=== PATIENT | female | born 1965 | race Caucasian/White ===

== ENCOUNTER 2017-07-23 17:07 | Emergency (ER) | payer OTHER ==
[2017-07-23 17:23] VITALS: BP 139/96
--- NOTE | 2017-07-23 18:49 | ED Physician Documentation ---
PD HPI SKIN - Stated complaint Stated Complaint: HIVES - Chief complaint Chief Complaint: Wound - History obtained from History obtained from: Patient - History of Present Illness Timing - onset: Yesterday Timing - duration: Days (2) Timing - details: Gradual onset Location: [place] Quality / character: Itchy, Burning Improved by: No: Benadryl Associated symptoms: Myalgias. No: Fever, Joint pain, Facial swelling, Dyspnea , Abd pain, N/V/D Contributing factors: No: Exposed to food, Recent illness Similar symptoms before: No diagnosis Recently seen: Clinic (last week and told to continue Benadryl and it was due to "nerves".) Review of Systems Constitutional: denies: Fever Nose: denies: Rhinorrhea / runny nose, Congestion Throat: denies: Sore throat Respiratory: denies: Dyspnea, Cough GI: denies: Abdominal Pain, Nausea, Vomiting, Diarrhea Skin: reports: Rash Neurologic: reports: Generalized weakness. denies: Focal weakness, Numbness PD PAST MEDICAL HISTORY - Past Medical History Past Medical History: Yes Cardiovascular: High cholesterol Respiratory: None Neuro: None Endocrine/Autoimmune: Type 2 diabetes GI: Other Other Past Medical History: Barretts ds, sarcoidosis. - Present Medications Home Medications: Ambulatory Orders Medication Instructions Recorded Confirmed Acetaminophen/Cod 300/30 [Tylenol 1 tab PO DAILY 07/23/17 07/23/17 #3] Aspirin Chewable [St Ok 81 mg PO DAILY 07/23/17 07/23/17 Aspirin] Cetirizine [ZyrTEC] 10 mg PO DAILY #20 tablet 07/23/17 Colloidal Oatmeal [Gold Cheney 1 applic TP BID #226 cream..g. 07/23/17 Ultimate Eczema Rlf] Dexamethasone [Decadron] 4 mg PO DAILY #5 tablet 07/23/17 Duloxetine HCl 60 mg PO DAILY 07/23/17 07/23/17 Insulin Glargine [Lantus Solostar] 40 unit PO DAILY 07/23/17 07/23/17 Insulin Lispro [Humalog] 100 unit PO DAILY 07/23/17 07/23/17 Omeprazole 40 mg PO DAILY 07/23/17 07/23/17 Polyvinyl Alcohol/Povidone 3 drops EACHEYE DAILY 07/23/17 07/23/17 [Artificial Tears Drops] Rosuvastatin Calcium 10 mg PO DAILY 07/23/17 07/23/17 Sennosides [Senna Laxative] 8.6 mg PO DAILY 07/23/17 07/23/17 amLODIPine [Norvasc] 5 mg PO DAILY 07/23/17 07/23/17 diphenhydrAMINE [Benadryl] 2 tab PO DAILY 07/23/17 07/23/17 hydrOXYzine PAMOATE [Vistaril] 25 mg PO Q6H PRN #30 capsule 07/23/17 - Allergies Allergies/Adverse Reactions: Allergies Allergy/AdvReac Type Severity Reaction Status Date / Time acetaminophen [From Vicodin] Allergy Unknown Verified 07/23/17 17:26 atorvastatin Allergy Unknown Verified 07/23/17 17:26 exenatide [From Bydureon] Allergy Unknown Verified 07/23/17 17:26 gabapentin Allergy Unknown Verified 07/23/17 17:26 hydrocodone [From Vicodin] Allergy Unknown Verified 07/23/17 17:26 hydroxychloroquine Allergy Anaphylaxis Verified 07/23/17 17:26 - Social History Does the pt smoke?: No Smoking Status: Never smoker PD ED PE NORMAL - Vitals Vital signs reviewed: Yes - General General: Alert and oriented X 3, Well developed/nourished, Other (anxious) - HEENT HEENT: Pharynx benign - Neck Neck: Supple, no meningeal sign, No adenopathy - Cardiac Cardiac: RRR, No murmur - Respiratory Respiratory: Clear bilaterally - Abdomen Abdomen: Soft, Non tender - Derm Derm: Normal color, Warm and dry, Other (blotches of raised, flat, nonvesicular rash.) - Extremities Extremities: No tenderness to palpate, Normal ROM s pain - Neuro Neuro: Alert and oriented X 3, No motor deficit, Normal speech Results - Vitals Vitals: Oxygen O2 Source Room air PD MEDICAL DECISION MAKING - ED course Complexity details: considered differential, d/w patient Departure - Departure Disposition: 01 Home, Self Care Clinical Impression: Hives Condition: Stable Record reviewed to determine appropriate education?: Yes Instructions: ED Urticaria Prescriptions: Cetirizine [ZyrTEC] 10 mg PO DAILY #20 tablet Colloidal Oatmeal [Gold Cheney Ultimate Eczema Rlf] 1 applic TP BID #226 cream..g. Dexamethasone [Decadron] 4 mg PO DAILY #5 tablet hydrOXYzine PAMOATE [Vistaril] 25 mg PO Q6H PRN #30 capsule PRN Reason: Itching Comments: Use Benadryl or Vistaril short acting antihistamines to help with the itching. We will also add dexamethasone steroid daily for 5 more days to try to reduce the reaction. Also use long-acting antihistamine cetirizine daily for couple of weeks. He can use topical treatment such as oatmeal colloid which can come as a cream or his [id number] as oatmeal bath (Aveeno). Follow-up with your primary care Barbie Lorenzana if not improved over the next several days. Discharge Date/Time: 07/23/17 19:29
[2017-07-23] MEDS ORDERED: hydrOXYzine PAMOATE 25 MG CAPSULE PO STA (19:08)
[2017-07-23] MEDS ORDERED: DEXAMETHASONE 10 MG/ML VIAL PO STA (19:08)
[2017-07-23] MEDS ORDERED: CETIRIZINE 10 MG TABLET PO STA (19:08)
== END 2017-07-23 19:29 | disposition home or self-care (01) ==
LOC: ED 17:07
DX: L50.9 Urticaria, unspecified (principal); E11.9 Type 2 diabetes mellitus without complications; Z79.4 Long term (current) use of insulin; Z79.82 Long term (current) use of aspirin
CPT/HCPCS: 99283; A9270

== ENCOUNTER 2018-05-26 12:07 | Outpatient (CLI) | payer OTHER | END 2018-05-26 12:08 | disposition EMS.NT | LOC: EMS 12:07 | PROVIDERS: ATTEND Surgery | DX: R68.89 Other general symptoms and signs (principal) ==

== ENCOUNTER 2018-06-24 13:23 | Emergency (ER) | payer OTHER ==
[2018-06-24 13:46] VITALS: BP 155/96
--- NOTE | 2018-06-24 13:55 | ED Physician Documentation ---
History of Present Illness - Stated complaint Stated Complaint: WOUND ON TOE - Chief complaint Chief Complaint: Wound - History obtained from History obtained from: Patient - History of Present Illness Timing: Yesterday Pain level max: 0 Pain level now: 0 Improved by: nothing Worsened by: nothing - Additonal information Additional information: 53-year-old female presents to the emergency department with a right fourth toe redness and swelling. There is a wound to the bottom of the toe. She is diabetic and has neuropathy. States that she checked her feet 2 days ago and this was not present. She did have a wound on the same foot that took 2 years to heal Saw her doctor yesterday and has been referred to wound care Review of Systems Constitutional: denies: Fever, Chills GI: denies: Vomiting Skin: denies: Rash Musculoskeletal: denies: Neck pain, Back pain PD PAST MEDICAL HISTORY - Past Medical History Cardiovascular: High cholesterol Respiratory: None Neuro: None Endocrine/Autoimmune: Type 2 diabetes GI: Other - Present Medications Home Medications: Ambulatory Orders Medication Instructions Recorded Confirmed Acetaminophen/Cod 300/30 [Tylenol 1 tab PO DAILY 07/23/17 07/23/17 #3] Aspirin Chewable [St Ok 81 mg PO DAILY 07/23/17 07/23/17 Aspirin] Cetirizine [ZyrTEC] 10 mg PO DAILY #20 tablet 07/23/17 Colloidal Oatmeal [Gold Cheney 1 applic TP BID #226 cream..g. 07/23/17 Ultimate Eczema Rlf] Dexamethasone [Decadron] 4 mg PO DAILY #5 tablet 07/23/17 Duloxetine HCl 60 mg PO DAILY 07/23/17 07/23/17 Insulin Glargine [Lantus Solostar] 40 unit PO DAILY 07/23/17 07/23/17 Insulin Lispro [Humalog] 100 unit PO DAILY 07/23/17 07/23/17 Omeprazole 40 mg PO DAILY 07/23/17 07/23/17 Polyvinyl Alcohol/Povidone 3 drops EACHEYE DAILY 07/23/17 07/23/17 [Artificial Tears Drops] Rosuvastatin Calcium 10 mg PO DAILY 07/23/17 07/23/17 Sennosides [Senna Laxative] 8.6 mg PO DAILY 07/23/17 07/23/17 amLODIPine [Norvasc] 5 mg PO DAILY 07/23/17 07/23/17 diphenhydrAMINE [Benadryl] 2 tab PO DAILY 07/23/17 07/23/17 hydrOXYzine PAMOATE [Vistaril] 25 mg PO Q6H PRN #30 capsule 07/23/17 Amox/Clav 875/125 [Augmentin] 1 each PO Q12H #14 tablet 06/24/18 Sulfamethox/Trimeth 800/160 1 each PO BID #14 tablet 06/24/18 [Bactrim Ds 800/160] - Allergies Allergies/Adverse Reactions: Allergies Allergy/AdvReac Type Severity Reaction Status Date / Time acetaminophen [From Vicodin] Allergy Unknown Verified 07/23/17 17:26 atorvastatin Allergy Unknown Verified 07/23/17 17:26 exenatide [From Bydureon] Allergy Unknown Verified 07/23/17 17:26 gabapentin Allergy Unknown Verified 07/23/17 17:26 hydrocodone [From Vicodin] Allergy Unknown Verified 07/23/17 17:26 hydroxychloroquine Allergy Anaphylaxis Verified 07/23/17 17:26 - Social History Does the pt smoke?: No Smoking Status: Never smoker PD ED PE NORMAL - Vitals Vital signs reviewed: Yes - General General: Alert and oriented X 3, No acute distress - HEENT HEENT: Moist mucous membranes - Neck Neck: Supple, no meningeal sign - Cardiac Cardiac: RRR - Respiratory Respiratory: No respiratory distress, Clear bilaterally - Derm Derm: Warm and dry - Extremities Extremities: Other (Wound to the medial plantar aspect of the right fourth toe. Cellulitis on the dorsum of the toe extending one third of the way proximally up the foot. No abscess.) - Neuro Neuro: Alert and oriented X 3 Results - Vitals Vitals: Vital Signs - 24 hr 06/24/18 13:30 Temperature 36.4 C L Heart Rate 88 Respiratory 17 Rate Blood Pressure 155/96 H O2 Saturation 98 Oxygen O2 Source Room air PD MEDICAL DECISION MAKING - ED course Complexity details: reviewed results, re-evaluated patient, considered differential, d/w patient ED course: Wound care consulted and dressed the wound. We will have her follow-up with wound care for further care. Will place on antibiotics for home and follow-up with her doctor and wound care. Patient counseled regarding signs and symptoms for which I believe and urgent re-evaluation would be necessary. Patient with good understanding of and agreement to plan and is comfortable going home at this time This document was made in part using voice recognition software. While efforts are made to proofread this document, sound alike and grammatical errors may occur. No gangrene, no abscess, no osteomyelitis Departure - Departure Disposition: 01 Home, Self Care Clinical Impression: Diabetic foot infection Cellulitis Qualifiers: Site of cellulitis: extremity Site of cellulitis of extremity: toe Laterality: right Qualified Code(s): L03.031 - Cellulitis of right toe Condition: Good Instructions: ED Infec Skin Cellulitis, ED Foot Care Diabetic Follow-Up: MITCH VINES [Primary Care Provider] - Within 3 Days Prescriptions: Amox/Clav 875/125 [Augmentin] 1 each PO Q12H #14 tablet Sulfamethox/Trimeth 800/160 [Bactrim Ds 800/160] 1 each PO BID #14 tablet Comments: Take all antibiotics until gone. Change the dressing daily. Follow-up with wound care for further care. Discharge Date/Time: 06/24/18 15:03
[2018-06-24] MEDS ORDERED: TETANUS/DIPHTHERIA/PERTUSSIS 0.5 ML SYRINGE IM ONE (14:03)
== END 2018-06-24 15:03 | disposition home or self-care (01) ==
LOC: ED 13:23
DX: E11.621 Type 2 diabetes mellitus with foot ulcer (principal); L03.031 Cellulitis of right toe; Z79.4 Long term (current) use of insulin
CPT/HCPCS: 90471; 99283

== ENCOUNTER 2021-06-29 18:26 | Emergency (ER) | payer OTHER ==
--- NOTE | 2021-06-29 18:55 | XRAY Report ---
PROCEDURE: Chest 1 View X-Ray INDICATIONS: Chest Pain TECHNIQUE: One view of the chest was acquired. COMPARISON: None. FINDINGS: Surgical changes and devices: None. Lungs and pleura: No pleural effusions or pneumothorax. Lungs are clear. Mild hemidiaphragm elevati on and left basilar atelectasis. Mediastinum: Mediastinal contours appear normal. Heart size is normal. Bones and chest wall: No suspicious bony lesions. Overlying soft tissues appear unremarkable. IMPRESSION: No acute cardiopulmonary disease. Reviewed by: John Loomis MD on 06/29/2021 5:53 PM AKDT Approved by: John Loomis MD on 06/29/2021 5:53 PM AKDT Station ID: [id number]
--- NOTE | 2021-06-29 18:59 | ED Physician Documentation ---
History of Present Illness - Stated complaint Stated Complaint: CHEST PX,NAUSEA,TROUBLE BREATHING - Additonal information Additional information: 56-year-old female who has a history of brittle type 2 diabetes, stage IV CKD, hypercalcemia, as well as sarcoidosis comes to the emergency department for evaluation of her persistent cough as well as chest pain. She recently traveled back to the [place] from [place] in order to receive her Remicade infusion scheduled for June. Due to the persistent cough she did go to [facility] emergency department this morning. She reports that she had a chest x-ray as well as a CT of her chest. She is subsequently discharged home with prescription for an albuterol inhaler and Tessalon Perles. She does feel that the cough has improved but the chest pain is new. She is also endorsing epigastric pain with some nausea and vomiting. Pt denies calf pain or unilateral leg swelling. By wells criteria lower risk for PE Patient states that she has a history of gastroparesis and was on omeprazole for a long time but her food safety director has advised her to discontinue that. Review of Systems Constitutional: denies: Fever, Chills Cardiac: reports: Chest pain / pressure. denies: Palpitations, Pedal edema, Calf pain Respiratory: reports: Cough. denies: Dyspnea, Hemoptysis, Wheezing GI: reports: Abdominal Pain, Nausea, Vomiting. denies: Constipation, Diarrhea, Hematemesis : reports: Reviewed and negative Skin: reports: Reviewed and negative Musculoskeletal: reports: Reviewed and negative Neurologic: reports: Reviewed and negative PD PAST MEDICAL HISTORY - Past Medical History Cardiovascular: High cholesterol Respiratory: None Neuro: None Endocrine/Autoimmune: Type 2 diabetes GI: Other - Present Medications Home Medications: Ambulatory Orders Medication Instructions Recorded Confirmed Acetaminophen/Cod 300/30 [Tylenol 1 tab PO DAILY 07/23/17 07/23/17 #3] Aspirin Chewable [St Ok 81 mg PO DAILY 07/23/17 07/23/17 Aspirin] Cetirizine [ZyrTEC] 10 mg PO DAILY #20 tablet 07/23/17 Colloidal Oatmeal [Gold Cheney 1 applic TP BID #226 cream..g. 07/23/17 Ultimate Eczema Rlf] Duloxetine HCl 60 mg PO DAILY 07/23/17 07/23/17 Insulin Glargine [Lantus Solostar] 40 unit PO DAILY 07/23/17 07/23/17 Insulin Lispro [Humalog] 100 unit PO DAILY 07/23/17 07/23/17 Omeprazole 40 mg PO DAILY 07/23/17 07/23/17 Polyvinyl Alcohol/Povidone 3 drops EACHEYE DAILY 07/23/17 07/23/17 [Artificial Tears Drops] Rosuvastatin Calcium 10 mg PO DAILY 07/23/17 07/23/17 Sennosides [Senna Laxative] 8.6 mg PO DAILY 07/23/17 07/23/17 amLODIPine [Norvasc] 5 mg PO DAILY 07/23/17 07/23/17 dexAMETHasone [Decadron] 4 mg PO DAILY #5 tablet 07/23/17 diphenhydrAMINE [Benadryl] 2 tab PO DAILY 07/23/17 07/23/17 hydrOXYzine PAMOATE [Vistaril] 25 mg PO Q6H PRN #30 capsule 07/23/17 Amox/Clav 875/125 [Augmentin] 1 each PO Q12H #14 tablet 06/24/18 Sulfamethox/Trimeth 800/160 1 each PO BID #14 tablet 06/24/18 [Bactrim Ds 800/160] - Allergies Allergies/Adverse Reactions: Allergies Allergy/AdvReac Type Severity Reaction Status Date / Time acetaminophen [From Vicodin] Allergy Unknown Verified 06/29/21 18:38 atorvastatin Allergy Unknown Verified 06/29/21 18:38 exenatide [From Bydureon] Allergy Unknown Verified 06/29/21 18:38 gabapentin Allergy Unknown Verified 06/29/21 18:38 hydrocodone [From Vicodin] Allergy Unknown Verified 06/29/21 18:38 hydroxychloroquine Allergy Anaphylaxis Verified 06/29/21 18:38 - Social History Does the pt smoke?: No Smoking Status: Never smoker PD ED PE NORMAL - General General: Alert and oriented X 3, No acute distress, Well developed/nourished - HEENT HEENT: Atraumatic, Ears normal - Neck Neck: Supple, no meningeal sign, Thyroid normal - Cardiac Cardiac: RRR, No murmur, No gallop - Respiratory Respiratory: No respiratory distress, Clear bilaterally - Abdomen Abdomen: Normal bowel sounds, Soft, Non tender - Back Back: No CVA TTP, No spinal TTP - Derm Derm: Normal color, Warm and dry, No rash - Extremities Extremities: No deformity, No tenderness to palpate, Normal ROM s pain - Neuro Neuro: Alert and oriented X 3, compliance technician 2-12 intact Eye Opening: Spontaneous Motor: Obeys Commands Verbal: Oriented GCS Score: 15 Results - Vitals Vitals: Vital Signs - 24 hr 06/29/21 06/29/21 06/29/21 18:34 18:38 19:08 Temperature 36.9 C 36.9 C 36.8 C Heart Rate 93 93 90 Respiratory 21 21 17 Rate Blood Pressure 150/105 H 150/105 H 150/105 H O2 Saturation 99 99 95 06/29/21 19:30 Temperature Heart Rate 88 Respiratory 14 Rate Blood Pressure 131/92 H O2 Saturation 98 Oxygen O2 Source Room air - EKG (time done) 1837 Rate: Rate (enter#) (87) Rhythm: NSR Sunshine: Normal Intervals: Normal AR QRS: Normal Ischemia: Normal ST segments Compare to prior EKG: Old EKG unavailable Computer interpretation: Agree with computer - Labs Labs: Laboratory Tests 06/29/21 06/29/21 06/29/21 18:50 18:50 18:50 WBC 8.1 RBC 3.64 L Hgb 10.1 L Hct 31.2 L MCV 85.7 MCH 27.7 MCHC 32.4 RDW 13.2 Plt Count 227 MPV 11.1 H Neut # (Auto) 5.3 Lymph # (Auto) 1.8 Donley # (Auto) 0.7 Eos # (Auto) 0.3 Baso # (Auto) 0.0 Absolute Nucleated RBC 0.00 Nucleated RBC % 0.0 Sodium 138 Potassium 4.2 Chloride 102 Carbon Dioxide 25 Anion Gap 11.0 BUN 38 H Creatinine 2.3 H Estimated GFR (MDRD) 22 L Glucose 145 H Calcium 9.2 Total Bilirubin 0.4 AST 16 ALT 16 Alkaline Phosphatase 89 Troponin I High Sens 4.5 Total Protein 8.0 Albumin 3.9 Globulin 4.1 Albumin/Globulin Ratio 1.0 Lipase 59 H - Rads (name of study) cxr Radiology: Final report received (No acute cardiopulmonary disease) PD MEDICAL DECISION MAKING - ED course Complexity details: reviewed results, re-evaluated patient, considered differential, d/w patient ED course: 56-year-old female who has a history of type 2 diabetes, sarcoidosis stage IV kidney disease and hypertension presents emergency department for evaluation of chest pain in the setting of a persistent cough that began about 10 days ago. Patient returned to [facility] to receive her Remicade infusion this upcoming Saturday. She plans to return to [place] where she has made her new home. She was seen at [facility] emergency department earlier this morning. While there she did have a noncontrast CT of the chest that did not show any acute findings particularly no pneumonia pleural effusions. Chest x-ray was negative. She did have COVID testing that was also unremarkable. She was told to begin taking Tessalon Perles and an inhaler. She comes to the emergency department today because she has developed some chest pain that has worsened over the course of the day. Again her chest x-ray is unremarkable her EKG was nonischemic. Screening CBC and electrolytes are also without acute worrisome findings in particular no leukocytosis and high-sensitivity troponin is negative. Patient has had proximal isms of coughing while here in the emergency department. She does have a known history of Solano's esophagitis which is currently untreated given her chronic kidney disease. I have advised her to follow closely with her food safety director to determine in the long-term how the esophagitis will be managed as I suspect GERD and acid reflux is contributing to the worsening cough. She was given Maalox here in the ER with good resolution of the epigastric pain. Patient was taught to use albuterol with a spacer which I also think will help with the proximal isms she is to continue the Tessalon Perles at home. Given a new location for living in [place] new allergies may be contributing to the symptoms and I have advised her to use Flonase for this. Emergent return precautions were discussed for worsening symptoms Departure - Departure Disposition: Home, Self Care Clinical Impression: Coughing, History of sarcoidosis Condition: Stable Record reviewed to determine appropriate education?: Yes Comments: Faby you are seen today in the emergency department for chest pain. This follows a recent episode of new cough. We did review your records from [facility]. The CAT scan there of your chest did not show any worrisome findings. Your chest x-ray was also normal. Here in the emergency department you had screening labs that were essentially normal with the exception of a mildly elevated blood glucose. Your chest x-ray today here was normal. Your EKG does not show signs that you are having a heart attack. As we discussed at the bedside given that you do not have pneumonia, you have recently traveled back from [place] and you have a history of Solano's esophagitis which is currently untreated I suspect that you have some allergies and sinus drip that is contributing to the cough. You may also be having some silent acid reflux or worsening of your Solano's esophagitis contributing to this cough. Please begin taking Flonase daily. Use the albuterol inhaler with a spacer 4-6 times a day. This should help soothe your cough. The Tessalon Perles will also help with the cough. I would like you to discuss with your primary care doctor as well as your food safety director longer-term management of the Solano's esophagitis. If left untreated you do have a high risk of developing ulcerations and erosions in the esophagus which could be life-threatening. In the Short-term I do recommend that you use as needed Maalox. An occasional dose of [id number] Pepcid or Protonix can also be used. Please discuss this ED visit with your primary care doctor as soon as possible. Return to the emergency department for chest pain, severe shortness of air, fainting episodes or if you feel your symptoms are worsening.
[2021-06-29 19:08] LABS: BASOPHILS % (AUTO) 0.5 %; EOSINOPHILS # (AUTO) 0.3 10^3/uL (0.0-0.7); EOSINOPHILS % (AUTO) 3.3 %; HCT - HEMATOCRIT 31.2 % (37.0-47.0); HGB - HEMOGLOBIN 10.1 g/dL (12.0-16.0); LYMPHOCYTES # (AUTO) 1.8 10^3/uL (1.5-3.5); LYMPHOCYTES % (AUTO) 21.6 %; MEAN CORPUSCULAR HEMOGLOBIN 27.7 pg (27.0-31.0); MEAN CORPUSCULAR HGB CONC 32.4 g/dL (32.0-36.0); MEAN CORPUSCULAR VOLUME 85.7 fL (81.0-99.0); MEAN PLATELET VOLUME 11.1 fL (7.9-10.8); MONOCYTES # (AUTO) 0.7 10^3/uL (0.0-1.0); MONOCYTES % (AUTO) 8.6 %; NEUTROPHILS # (AUTO) 5.3 10^3/uL (1.5-6.6); NEUTROPHILS % (AUTO) 65.6 %; PLT - PLATELET COUNT 227 10^3/uL (130-450); RED BLOOD COUNT 3.64 10^6/uL (4.20-5.40); RED CELL DISTRIBUTION WIDTH 13.2 % (12.0-15.0); WHITE BLOOD COUNT 8.1 x10^3/uL (4.8-10.8)
[2021-06-29] MEDS ORDERED: MAG HYDROX/AL HYDROX/SIMETH 30 ML UDC PO STA (19:18)
[2021-06-29 19:19] LABS: ALBUMIN 3.9 g/dL (3.2-5.5); BILIRUBIN,TOTAL 0.4 mg/dL (0.2-1.0); CALCIUM 9.2 mg/dL (8.5-10.3); CREATININE 2.3 mg/dL (0.4-1.0); POTASSIUM 4.2 mmol/L (3.5-5.0)
[2021-06-29] MEDS ORDERED: PANTOPRAZOLE 40 MG VIAL IVP STA (19:19)
[2021-06-29] MEDS ORDERED: ALBUTEROL 1 PUFF INH STA (20:06)
[2021-06-29 20:56] VITALS: BP 114/78
== END 2021-06-29 20:55 | disposition home or self-care (01) ==
LOC: ED 18:26
DX: D86.9 Sarcoidosis, unspecified (principal); I12.0 Hypertensive chronic kidney disease with stage 5 chronic kidney disease or end stage renal disease; E11.22 Type 2 diabetes mellitus with diabetic chronic kidney disease; N18.5 Chronic kidney disease, stage 5; Z79.4 Long term (current) use of insulin
CPT/HCPCS: 36415; 80053; 83690; 84484; 85025; 93005; 94640; 94664; 96374; 99284